=== PATIENT | female | born 1955 | race Caucasian/White ===

== ENCOUNTER → 2021-01-22 08:04 | Outpatient (CLI) | payer OTHER, SELFPAY ==
--- NOTE | ~2021-01-22 | MM_ITS ---
EXAMINATION: MM screening [facility] [place] HISTORY: Screening mammogram TECHNIQUE: Craniocaudal and mediolateral oblique 3-D tomosynthesis images were obtained and synthetic 2-D images were generated. CAD analysis was submitted and interpreted. COMPARISON: 03/21/2017, 03/11/2015, 01/02/2014 BREAST PARENCHYMAL COMPOSITION: The breasts are almost entirely fatty. FINDINGS: There is a new approximately 6 x 9 mm circumscribed opacity situated superficially overlyin g the posterior lower left breast on MLO projection (MLO Tomosynthesis image 1/73), most likely a ski n mole. Placement of a skin marker on the suspected mole and repeat left MLO view and tangential left craniocaudal view are recommended Otherwise there is no evidence of suspicious mass, calcification, or architectural distortion to sugg est malignancy in either breast. There has been no other suspicious interval change. IMPRESSION: 1. Probable posterior lower left breast skin mole. Recommend additional MLO and tangential craniocaud al views with skin marker for confirmation 2. Otherwise no mammographic evidence of malignancy BI-RADS Category 0: Incomplete: Needs additional imaging evaluation. Reviewed, dictated and finalized at location A. IMPRESSION: 1. Probable posterior lower left breast skin mole. Recommend additional MLO and tangential craniocaudal views with skin marker for confirmation 2. Otherwise no mammographic evidence of malignancy BI-RADS Category 0: Incomplete: Needs additional imaging evaluation.
--- NOTE | ~2021-01-22 | DEXA_ITS ---
Bone Density Report Name: Shanna Ryan Age: 65 Sex: Female Ethnicity: White Date of : 1955 Indication: osteopenia; height loss; postmenopausal Referring Provider: Soledad, Blanka Avilez Study: Bone densitometry was performed. Exam Date: January 22, 2021 Accession number: [id number] Bone Density: Region BMD T-score Z-score Classification AP Spine (L1, L2, L3) 0.903 -1.0 0.9 Normal Femoral Neck (Left) 0.619 -2.1 -0.4 Osteopenia Total Hip (Left) 0.755 -1.5 -0.2 Osteopenia Femoral Neck (Right) 0.648 -1.8 -0.1 Osteopenia Total Hip (Right) 0.758 -1.5 -0.1 Osteopenia Total Hip Mean 0.757 -1.5 -0.2 Osteopenia World Health Organization criteria for BMD impression classify patients as: Normal (T-score at or above -1.0), Osteopenia (T-score between -1.0 and -2.5), or Osteoporosis (T-score at or below -2.5). 10-year Fracture Risk(1): Major Osteoporotic Fracture 12% Hip Fracture 3.3% Reported Risk Factors: [place] (), Neck BMD=0.619, BMI=27.0, smoking (1) FRAX(R) Version 3.08. Fracture probability calculated for an untreated patient. Fracture probability may be lower if the patient has received treatment. Previous Exams: Region Exam Age BMD T-score BMD Change BMD Change Date g/cm2 vs Baseline vs Previous AP Spine(L1, L2, L3) 01/22/2021 65 0.903 -1.0 -0.070* -0.063* 05/02/2017 62 0.965 -0.5 -0.008 -0.008 05/30/2007 52 0.973 -0.4 Total Hip(Left) 01/22/2021 65 0.755 -1.5 -0.075* -0.021 05/02/2017 62 0.776 -1.4 -0.055* -0.055* 05/30/2007 52 0.831 -0.9 Total Hip(Right) 01/22/2021 65 0.758 -1.5 -0.126* -0.035* 05/02/2017 62 0.793 -1.2 -0.092* -0.092* 05/30/2007 52 0.885 -0.5 *Denotes significance at 95% confidence level, LSC for AP Spine = 0.022 g/cm2, LSC for Total Hip = 0.027 g/cm2 Clinical Information Provided by Patient: Smokes Has used the following medications: Vitamin D, Calcium, MTV Patient maximum height was 66 Menopause Age: 49 Drinks caffeinated beverages Onset of menses at age 7 Number of children 1 Impression: The patient has low bone mass, based on the Left Femoral Neck T-score. The patient has an estimated ten-year risk of hip fracture of 3.3% and an estimated ten-year risk of major fracture of 12%, based on the WHO FRAX algorithm. The patient has risk factors, including: smoking. T
== END ==
PROVIDERS: PCP Nurse Practitioner Psychiatric/Mental Health; Visit Provider Nurse Practitioner Psychiatric/Mental Health
DX: Z12.31 Encounter for screening mammogram for malignant neoplasm of breast (principal); Z78.0 Asymptomatic menopausal state; R92.8 Other abnormal and inconclusive findings on diagnostic imaging of breast; M85.852 Other specified disorders of bone density and structure, left thigh; M85.851 Other specified disorders of bone density and structure, right thigh
CPT/HCPCS: 77063; 77067; 77080

== ENCOUNTER → 2021-03-30 10:07 | Outpatient (CLI) | payer OTHER, SELFPAY ==
--- NOTE | ~2021-03-30 | MM_ITS ---
EXAMINATION: MM diagnostic [facility] w [place] HISTORY: Follow-up left breast asymmetry TECHNIQUE: Additional 3-D tomosynthesis images of the left breast were performed and synthetic 2-D im ages were generated. CAD analysis was submitted and interpreted. COMPARISON: 01/22/2021 BREAST PARENCHYMAL COMPOSITION: Breast composed of scattered areas of fibroglandular density. FINDINGS: There are no suspicious masses, calcifications or architectural distortion in the left emanuel st to suggest malignancy. Skin marker corresponds to mole identified on prior screening mammogram. IMPRESSION: 1. No evidence for malignancy in the left breast. 2. Routine yearly screening mammogram and regular clinical breast examination are recommended. BI-RADS Category 1: Negative Reviewed, dictated and finalized at location A. IMPRESSION: 1. No evidence for malignancy in the left breast. 2. Routine yearly screening mammogram and regular clinical breast examination a re recommended. BI-RADS Category 1: Negative
== END ==
PROVIDERS: PCP Nurse Practitioner Psychiatric/Mental Health; Visit Provider Nurse Practitioner Psychiatric/Mental Health
DX: R92.8 Other abnormal and inconclusive findings on diagnostic imaging of breast (principal)
CPT/HCPCS: 77061; 77065; G0279

== ENCOUNTER → 2021-06-29 08:20 | Outpatient (CLI) | payer OTHER, SELFPAY ==
--- NOTE | ~2021-06-29 | CT_ITS ---
EXAMINATION: CT abdomen pelvis w con DATE: 06/29/2021 08:51 INDICATION: Diarrhea, change in bowel habits TECHNIQUE: Computed tomography (CT) of the abdomen and pelvis was performed with 100 cc Omnipaque 350 intravenous contrast. Automated exposure control and iterative reconstruction technique were employe d. Exam dose: 537.84 mGy-cm total exam DLP. COMPARISON: None. FINDINGS: The lung bases are clear. Normal heart size. No pericardial or pleural effusion. The liver, gallbladder, bile ducts, pancreas, pancreatic duct and spleen are unremarkable. 8 x 14 mm right adrenal probable adenoma. The left adrenal gland is unremarkable. There is a 2.2 cm fat containing lesion at the upper pole right kidney consistent with angiomyolipoma . There is a 9 mm angiomyolipoma at the upper pole of the left kidney. No urinary tract calculus or hydroureteronephrosis. The urinary bladder is unremarkable. Small calcified uterine fibroid. The uterus and adnexal areas are otherwise unremarkable. There is atherosclerotic calcification of the abdominal aorta but no aneurysm. No intraperitoneal or retroperitoneal or pelvic mass lesion or adenopathy or ascites. Normal appendix. There are occasional diverticula of the sigmoid and distal descending colon and right colon; no CT ev idence of diverticulitis. There are some fluid levels of small bowel and some liquid stool in the colon consistent with history of diarrhea. No bowel obstruction, pneumatosis or intraperitoneal free air. Degenerative changes of the lower thoracic and lumbar spine, including degenerative change at the apo physeal joints with associated grade 1 anterolisthesis at L3-4, multilevel degenerative disc disease of the lumbar spine, especially at L2-3, L4-5, L5-S1. No suspicious osteolytic or osteoblastic lesions are noted. IMPRESSION: Small bowel air-fluid levels and mucosal the colon, consistent with clinical history of diarrhea. No bowel obstruction or free air Diverticulosis of the colon; no CT evidence of diverticulitis Bilateral renal angiomyolipomas 8 x 14 mm right adrenal probable adenoma Reviewed, dictated and finalized at Location A. Reviewed, dictated and finalized at location B. IMPRESSION: Small bowel air-fluid levels and mucosal the colon, consistent wit h clinical history of diarrhea. No bowel obstruction or free air Diverticulosis of the colon; no CT evidence of diverticulitis Bilateral renal angiomyolipomas 8 x 14 mm right adrenal probable adenoma
[2021-06-29 08:40] LABS: Estimated Glomerular Filt Rate > 60
== END ==
PROVIDERS: PCP Nurse Practitioner Psychiatric/Mental Health; Visit Provider Nurse Practitioner Family
DX: R19.7 Diarrhea, unspecified (principal); R19.4 Change in bowel habit; K57.30 Diverticulosis of large intestine without perforation or abscess without bleeding
CPT/HCPCS: 74177; Q9967

== ENCOUNTER → 2022-03-27 11:41 | Outpatient (CLI) | payer OTHER, SELFPAY ==
--- NOTE | ~2022-03-27 | XR_ITS ---
XR lumbar spine 2-3V DATE: 03/27/2022 12:51 INDICATION: Low back pain TECHNIQUE: AP, lateral, coned lateral lumbosacral views COMPARISON: 06/29/2021 CT abdomen pelvis FINDINGS: There is osteopenia. There is mild dextroscoliosis of the lower thoracic spine and mild levoscoliosis of the lumbar spine. There is prominent degenerative change at the apophyseal joints of the lumbar and lumbosacral spine w ith associated grade 1 anterolisthesis at L3-4, stable since 06/29/2021. There is multilevel degenerative disc disease, [id number] at L5-S1, moderate at L3-4, moderatel y severe at L1-2, L2-3 and severe at L4-5. No fracture or bone destruction is evident. The lumbar pedicles are intact. The sacroiliac joints appear normal. IMPRESSION: Osteopenia Scoliosis Multilevel degenerative disc disease, most pronounced at L4-5 Degenerative changes apophyseal joints with grade 1 anterolisthesis at L3-4 No significant change since 06/29/2021 Reviewed, dictated and finalized at location B.
== END ==
PROVIDERS: PCP Internal Medicine; Visit Provider Internal Medicine
DX: M85.88 Other specified disorders of bone density and structure, other site (principal); M41.9 Scoliosis, unspecified; M51.36 Other intervertebral disc degeneration, lumbar region
CPT/HCPCS: 72100

== ENCOUNTER 2022-04-27 07:22 | Outpatient (CLI) | payer OTHER, SELFPAY ==
--- NOTE | ~2022-04-27 | MR_ITS ---
EXAMINATION: MR lumbar spine wo con DATE: 04/27/2022 08:00 INDICATION: Low back pain TECHNIQUE: Magnetic resonance imaging (MRI) of the lumbar spine was performed without intravenous con trast. Sequences included sagittal T2-weighted FSE, sagittal T2-weighted FS FSE, sagittal T1-weighted FSE, and axial T2-weighted FSE. COMPARISON: CT abdomen and pelvis dated 06/29/2021 FINDINGS: 13 degrees lumbar levoscoliosis. 2 mm anterolisthesis L2 on L3, 3 mm anterolisthesis L3 on L4, 2 mm a nterolisthesis L4 on L5. Vertebral body heights are normal. Moderate to severe disc height loss at L4 -L5, T9-T10 and with left-sided predominance at T11-T12. Moderate disc height loss at T10-T11, T12-L1 , L2-L3 and L4-L5. Mild to moderate left-sided predominant disc height loss at L5-S1 and mild disc he ight loss at L1-L2. There perivascular degenerative endplate changes in the region of most severe dis c space narrowing. The conus medullaris terminates at L1-L2. There is normal signal in the caudal spi nal cord. 2 cm T2 hyperintense lesion at the upper pole of the right kidney which on prior CT corresp onds to a macroscopic fat-containing angiomyolipoma. Paravertebral soft tissues are unremarkable. The following disc levels are specifically discussed: T11-T12: Disc is mildly bulging with superimposed annular fissure and left paracentral disc extrusion which extends up to 5 mm cephalad to the level of the inferior endplate of T11. There is mild right and severe left facet osteoarthritis. Is minimal right and moderate right neural foraminal stenosis. Mild central canal stenosis. T12-L1: Disc is bulging. There is mild bilateral facet joint osteoarthritis. There is old right and m oderate left neural foraminal stenosis. There is mild central canal stenosis. L1-L2: Disc is bulging. There is mild bilateral facet joint osteoarthritis. There is altered left and mild to moderate right neural foraminal stenosis. There is mild central canal stenosis. L2-L3: Disc is bulging with superimposed annular fissure and right paracentral disc extrusion with di sc material extending up to 3 mm cephalad to the level of the inferior endplate of L2. There is moder ate left and severe right facet joint osteoarthritis. There is mild left and moderate right neural fo raminal stenosis. There is mild central canal stenosis. L3-L4: Disc is bulging. There is severe bilateral facet joint osteoarthritis. There is mild right and mild to moderate left neural foraminal stenosis. There is mild central canal stenosis. L4-L5: Disc is bulging with annular fissure. There is moderate left and severe right facet joint oste oarthritis. There is moderate left and moderate to severe right neural foraminal stenosis. There is m ild central canal stenosis. L5-S1: Disc is bulging with superimposed annular fissure and small left foraminal zone disc extrusion with disc material extending up to 4 mm cephalad to the level of the inferior endplate of L5. There is moderate left and severe right facet joint osteoarthritis. There is mild to moderate right and mod erate to severe left neural foraminal stenosis. There is minimal central canal stenosis. IMPRESSION: 1. Mild lumbar levoscoliosis with severe spondylosis. Reviewed, dictated and finalized at location A.
== END 2022-04-27 07:23 ==
LOC: MICIMG 07:23
PROVIDERS: PCP Internal Medicine; Visit Provider Internal Medicine
DX: M47.896 Other spondylosis, lumbar region (principal)
CPT/HCPCS: 72148